=== PATIENT | male | born 1970 | race Caucasian/White ===

== ENCOUNTER 2018-02-04 23:36 | Inpatient (IN) | payer MEDICAID ==
[~2018-02-04] VITALS: Ht 182.9 cm; Wt 72.6 kg
[2018-02-04 23:44] VITALS: BP 112/71
--- NOTE | 2018-02-04 23:50 | Emergency Room Report ---
History of Present Illness General Chief Complaint: Abdominal Pain Source: Patient Present Illness HPI Is a 47-year-old male who is an alcoholic. He said he drinks heavily every day. He switched from vodka to wine. He presents with chief complaint abdominal distention and jaundice. He said it has been on going for several weeks but worse in the last week. No pain. There is heaviness and fullness to his abdomen. Diffuse tenderness. No nausea no vomiting. Denies any other medical problem. Denies any drug use. No trauma. No fever. Allergies: Coded Allergies: No Known Allergies (Unverified , 02/04/18) Patient History Past Medical History: none, see triage record, old chart reviewed Past Surgical History: none Pertinent Family History: none Social History: Reports: smoking, alcohol use Immunizations: other Reviewed Nursing Documentation: PMH: Agreed; PSxH: Agreed Nursing Documentation-PMH Past Medical History: No History, Except For Review of Systems Eye: Denies: eye pain, blurred vision ENT: Denies: ear pain, nose congestion, throat swelling Respiratory: Denies: cough, shortness of breath Cardiovascular: Denies: chest pain, palpitations Gastrointestinal: Denies: abdominal pain, diarrhea, nausea, vomiting Musculoskeletal: Denies: back pain, joint pain Skin: Denies: rash Neurological: Denies: headache, numbness Endocrine: Denies: increased thirst, increased urine Hematologic/Lymphatic: Denies: easy bruising All Other Systems: negative except mentioned in HPI Physical Exam Vital Signs Date Time Temp Pulse Resp B/P (MAP) Pulse Ox O2 Delivery O2 Flow Rate FiO2 02/04/18 23:28 96.4 85 16 112/71 96 Room Air 96.4 vitals normal Sp02 EP Interpretation: reviewed, normal General Appearance: no apparent distress, alert, thin, Chronically Ill Head: normocephalic, atraumatic Eyes: bilateral eye PERRL, bilateral eye EOMI, bilateral eye Scleral Injection ENT: hearing grossly normal, normal pharynx Neck: full range of motion, supple, no meningismus Respiratory: chest non-tender, lungs clear, normal breath sounds Cardiovascular #1: regular rate, rhythm, no murmur Gastrointestinal: normal bowel sounds, non tender, no mass, no organomegaly, no bruit, other - distention from ascites Musculoskeletal: back normal, gait/station normal, normal range of motion Neurologic: alert, oriented x3 Psychiatric: mood/affect normal Skin: warm/dry Procedures Critical Care Time Critical Care Time Critical care is mandated in this patient who presented with severe hyponatremia. Patient require my urgent intervention to attenuate the risks of neurological collapse which may lead to cardiovascular collapse and . Critical care time is 35 minutes excluding any reportable procedure. Critical care time included evaluation, multiple reevaluation, looking at old charts, interpreting laboratory and diagnostic data, discussing case with patient and family and consultants, and charting. Additional Procedure Procedure Narrative Procedure: Paracentesis Indication: Abdominal distention, ascites, rule out SBP. Description: Consent obtained from patient. I prepped the area with chlorhexidine and under sterile condition injected the skin with 1% lidocaine without epinephrine. A total of 3 mL injected. Using a paracentesis kit, I placed the catheter into the peritoneal cavity. I aspirated out yellowish ascites. There was no blood. So far, there is about 2 L of output. Patient tolerate procedure without a problem. no complication. He said he felt better. Medical Decision Making Diagnostic Impression: Primary Impression: Hepatorenal syndrome Additional Impressions: End stage liver disease ARF (acute renal failure) Qualified Codes: N17.9 - Acute kidney failure, unspecified Hyponatremia Anemia Qualified Codes: D64.9 - Anemia, unspecified Alcoholism Hypochloremia Leukocytosis Qualified Codes: D72.829 - Elevated white blood cell count, unspecified Alcoholic cirrhosis of liver with ascites Lactic acidosis ER Course This patient is an alcoholic who presents with severe jaundice and ascites. He has no obvious source of infection was high white count. Ascites is very yellow but not purulent in appearance. Cell counts pending. I cover him with Zosyn and Levaquin for possible peritonitis. His prognosis is very poor in light of hepatorenal failure. He felt more comfortable after paracentesis about a 5000 mL output. His bilirubin extremely high. This may be some obstructive process either from cirrhosis or neoplastic process. We'll admit for further workup. I discussed the case with Dr. Carlin who will admit. Laboratory Tests Test 02/04/18 23:40 02/05/18 00:35 02/05/18 00:40 02/05/18 01:00 White Blood Count 24.4 K/UL (4.8-10.8) *H Red Blood Count 3.24 M/UL (4.70-6.10) L Hemoglobin 11.7 G/DL (14.2-18.0) L Hematocrit 30.4 % (42.0-52.0) L Mean Corpuscular Volume 94 FL (80-99) Mean Corpuscular Hemoglobin 36.1 PG (27.0-31.0) H Mean Corpuscular Hemoglobin Concent 38.5 G/DL (32.0-36.0) H Red Cell Distribution Width 12.2 % (11.6-14.8) Platelet Count 117 K/UL (150-450) L Mean Platelet Volume 10.2 FL (6.5-10.1) H Neutrophils (%) (Auto) % (45.0-75.0) Lymphocytes (%) (Auto) % (20.0-45.0) Monocytes (%) (Auto) % (1.0-10.0) Eosinophils (%) (Auto) % (0.0-3.0) Basophils (%) (Auto) % (0.0-2.0) Neutrophils % (Manual) Pending Lymphocytes % (Manual) Pending Platelet Estimate Pending Platelet Morphology Pending Prothrombin Time 14.3 SEC (9.30-11.50) H Prothromb Time International Ratio 1.4 (0.9-1.1) H Activated Partial Thromboplast Time 49 SEC (23-33) H Sodium Level 106 MMOL/L (136-145) *L 106 MMOL/L (136-145) *L Potassium Level 4.6 MMOL/L (3.5-5.1) 4.9 MMOL/L (3.5-5.1) Chloride Level 67 MMOL/L (98-107) L 67 MMOL/L (98-107) L Carbon Dioxide Level 22 MMOL/L (21-32) 21 MMOL/L (21-32) Anion Gap 19 mmol/L (5-15) H 18 mmol/L (5-15) H Blood Urea Nitrogen 78 mg/dL (7-18) H 78 mg/dL (7-18) H Creatinine 8.5 MG/DL (0.55-1.30) H 8.6 MG/DL (0.55-1.30) H Estimat Glomerular Filtration Rate 6.7 mL/min (>60) 6.7 mL/min (>60) Glucose Level 99 MG/DL (74-106) 106 MG/DL (74-106) Calcium Level 7.7 MG/DL (8.5-10.1) L 7.5 MG/DL (8.5-10.1) L Total Bilirubin 28.7 MG/DL (0.2-1.0) H Direct Bilirubin 23.8 MG/DL (0.0-0.3) H Aspartate Amino Transf (AST/SGOT) 120 U/L (15-37) H Alanine Aminotransferase (ALT/SGPT) 60 U/L (12-78) Alkaline Phosphatase 255 U/L (46-116) H Total Protein 6.4 G/DL (6.4-8.2) Albumin 2.2 G/DL (3.4-5.0) L Globulin 4.2 g/dL Albumin/Globulin Ratio 0.5 (1.0-2.7) L Lipase 378 U/L (73-393) Lactic Acid Level 4.80 mmol/L (0.66-2.22) H Body Fluid Source Pending Body Fluid Volume Pending Body Fluid Appearance Pending Body Fluid RBC Pending Body Fluid Total Nucleated Cells Pending Body Fluid Polynuclear WBCs (%) Pending Body Fluid Mononuclear WBCs (%) Pending Body Fluid Mesothelial Cells (%) Pending Body Fluid Glucose Pending Body Fluid Total Protein Pending Test 02/05/18 02:20 Lactic Acid Level Pending Lab Results Impression labs with elevated wbc, ARF and elevated bilirubin EKG Diagnostic Results Rate: normal Rhythm: NSR ST Segments: no acute changes Rhythm Strip Diag. Results Rhythm Strip Time: 01:32 EP Interpretation: yes Rate: 86 Rhythm: NSR, no PVC's, no ectopy Chest X-Ray Diagnostic Results Chest X-Ray Diagnostic Results : Chest X-Ray Ordered: Yes # of Views/Limited/Complete: 1 View Indication: Shortness of Breath EP Interpretation: Yes Interpretation: no consolidation, no effusion, no pneumothorax, no acute cardiopulmonary disease Impression: No acute disease Electronically Signed by: Mu Culver MD Last Vital Signs Date Time Temp Pulse Resp B/P (MAP) Pulse Ox O2 Delivery O2 Flow Rate FiO2 02/04/18 23:44 96.4 85 16 112/71 96 Room Air 96.4 Status: improved Disposition: ADMITTED INPATIENT Condition: Serious MU CULVER M.D. Feb 04, 2018 23:50
[2018-02-05] VITALS (7 sets, daily range): BP systolic 90–101; BP diastolic 48–73
[2018-02-05] MEDS ORDERED: chlordiazePOXIDE 25mg Cap ORAL ONE
[2018-02-05 00:08] LABS: HEMATOCRIT 30.4 % (42.0-52.0); HEMOGLOBIN 11.7 G/DL (14.2-18.0); MEAN CORPUSCULAR VOLUME 94 FL (80-99); PLATELET COUNT 117 K/UL (150-450); RED BLOOD COUNT 3.24 M/UL (4.70-6.10); RED CELL DISTRIBUTION WIDTH 12.2 % (11.6-14.8)
[2018-02-05 00:14] LABS: WHITE BLOOD COUNT 24.4 K/UL (4.8-10.8)
[2018-02-05 00:41] LABS: ALANINE AMINOTRANSFERASE 60 U/L (12-78); ALBUMIN 2.2 G/DL (3.4-5.0); ALBUMIN/GLOBULIN RATIO 0.5 (1.0-2.7); ALKALINE PHOSPHATASE 255 U/L (46-116); ANION GAP 19 mmol/L (5-15); ASPARTATE AMINO TRANSFERASE 120 U/L (15-37); BILIRUBIN,TOTAL 28.7 MG/DL (0.2-1.0); BLOOD UREA NITROGEN 78 mg/dL (7-18); CALCIUM 7.7 MG/DL (8.5-10.1); CARBON DIOXIDE 22 MMOL/L (21-32); CHLORIDE 67 MMOL/L (98-107); CREATININE 8.5 MG/DL (0.55-1.30); POTASSIUM 4.6 MMOL/L (3.5-5.1)
[2018-02-05 00:44] LABS: SODIUM 106 MMOL/L (136-145)
[2018-02-05 00:47] LABS: INR 1.4 (0.9-1.1)
[2018-02-05 00:49] LABS: BILIRUBIN,DIRECT 23.8 MG/DL (0.0-0.3)
[2018-02-05 01:31] LABS: ANION GAP 18 mmol/L (5-15); BLOOD UREA NITROGEN 78 mg/dL (7-18); CALCIUM 7.5 MG/DL (8.5-10.1); CARBON DIOXIDE 21 MMOL/L (21-32); CHLORIDE 67 MMOL/L (98-107); CREATININE 8.6 MG/DL (0.55-1.30); POTASSIUM 4.9 MMOL/L (3.5-5.1)
[2018-02-05 01:39] LABS: SODIUM 106 MMOL/L (136-145)
[2018-02-05] MEDS ORDERED: NaCl 3% 500ml 500 ML IVPB ONE (01:45)
[2018-02-05] MEDS ORDERED: Piperacillin/Tazobactam 3.375 GM in NS 110 ML IVPB ONE (01:45)
[2018-02-05] MEDS ORDERED: NKM (03:43)
[2018-02-05 04:34] LABS: COLOR,URINE GREEN
[2018-02-05 04:35] LABS: APPEARANCE,URINE SLIGHTLY CLOUDY; BILIRUBIN, URINE 3+ (NEGATIVE); GLUCOSE, URINE (UA) 1+ (NEGATIVE); KETONES,URINE NEGATIVE (NEGATIVE); LEUKOCYTE ESTERASE ,URINE 1+ (NEGATIVE); NITRITE,URINE POSITIVE (NEGATIVE); PH,URINE 5 (4.5-8.0); PROTEIN,URINE 3+ (NEGATIVE); UROBILINOGEN,URINE 4 MG/DL (0.0-1.0)
[2018-02-05] MEDS: Heparin 5000 units/ml inj SUBQ SCH ×2 (09:00→21:00)
[2018-02-05] MEDS: chlordiazePOXIDE 5mg Cap ORAL SCH ×2 (09:04→18:06)
--- NOTE | 2018-02-05 09:27 | Diagnostic Imaging Report ---
Indication: Soreness of breath Technique: XRAY Chest 1v Comparison: None Findings: Limited exam with low lung volumes. Heart size within normal limits. Mediastinal contours are sharp. The aorta is slightly tortuous. There is slight prominence of the pulmonary vascularity, likely related to low lung volumes. There is linear opacity in the medial right lower lung possibly related to subsegmental atelectasis. No pleural effusion or pneumothorax. No acute osseous abnormality. IMPRESSION: Slight prominence of the pulmonary vascularity likely secondary to low lung volumes. A degree of mild interstitial edema/fluid overload is not entirely excluded. Linear opacity in the medial right lower lung thought to represent subsegmental atelectasis. Clinical correlation and follow-up exam recommended. Study obtained via the emergency department however patient admitted to the hospital at time of dictation of the final report.
--- NOTE | 2018-02-05 10:32 | History and Physical Report ---
DATE OF ADMISSION: 02/05/2018 CHIEF COMPLAINT: Abdominal pain. HISTORY OF PRESENT ILLNESS: This is a 47-year-old male with an unfortunate end-stage liver disease and ascites. The patient presented with abdominal distention and jaundice. PAST MEDICAL HISTORY: End-stage liver disease due to alcohol. MEDICATIONS: No known medications. ALLERGIES: No known drug allergies. FAMILY HISTORY: Unremarkable. SOCIAL HISTORY: The patient drinks on a daily basis heavily for many years. There is no history of illicit drug abuse. REVIEW OF SYSTEMS: HEENT: Hearing and eyesight are normal. ENDOCRINE: No history of diabetes, thyroid or adrenal problems. RESPIRATORY: He denies shortness of breath, cough or hemoptysis. CARDIOVASCULAR: He denies chest pain or palpitations. GASTROINTESTINAL: Significant for chronic liver disease. NEUROLOGICAL: No history of stroke, syncope or Parkinson's disease. PHYSICAL EXAMINATION: GENERAL: This is a middle aged, chronically ill-appearing, male, who is in no acute distress. VITAL SIGNS: Blood pressure 97/61, pulse 93, respirations 23, and temperature 97 degrees. HEENT: Head is normocephalic and atraumatic. Pupils are equal, round, and reactive to light and accommodation consensually. NECK: Supple. Trachea midline. There was no lymphadenopathy or thyromegaly. LUNGS: Clear to auscultation and percussion. HEART: Regular rate and rhythm without rubs, murmurs, or gallops. ABDOMEN: He has tense ascites. There was no impression of hepatomegaly, difficult to getting pressure of splenomegaly. NEUROLOGIC: The patient is little sleepy, but arousable. LABORATORY AND ANCILLARY DATA: [place] [address], hematocrit 30.4, and platelet count 117,000. Serum chemistry, sodium 106, potassium 4.9, chloride 67, BUN 78, and creatinine 8.6. Lactic acid 2.9. Urine toxicology screen negative. ASSESSMENT: 1. End-stage liver failure. 2. Hepatorenal syndrome. 3. Chronic hyponatremia. Assessment showed the patient's prognosis is extremely poor given the combination of the 2 major organ failure. At this point, I will discuss the treatment goals and meetings with the patient and possibly with significant other. We will try to get social worker palliative care to find family members and relatives. The patient does not qualify for initiation of hemodialysis since his prognosis is extremely poor. Tirso Eaton M.D. DR: BINH JOB#: [id number] CC:
[2018-02-05] MEDS: Acetaminophen 500mg (ES) tab ORAL PRN ×2 (13:55→19:39)
[2018-02-05] MEDS ORDERED: Zolpidem 5mg tab ORAL PRN (20:45)
[2018-02-06] VITALS: BP 90/57
[2018-02-06 04:00] VITALS: BP 89/52
[2018-02-06 08:00] VITALS: BP 96/46
[2018-02-06] MEDS: chlordiazePOXIDE 5mg Cap ORAL SCH ×2 (08:24→17:21)
[2018-02-06] MEDS: Heparin 5000 units/ml inj SUBQ SCH ×2 (08:37→21:00)
--- NOTE | 2018-02-06 09:11 | General Progress Note ---
Assessment/Plan Assessment/Plan Hepatorenal Syn. ESLD Poor Prognosis. Needs Hospice. Subjective Allergies: Coded Allergies: No Known Allergies (Unverified , 02/04/18) Subjective c/o diffuse pain. Wants narcotics. Objective Last 24 Hour Vital Signs Date Time Temp Pulse Resp B/P (MAP) Pulse Ox O2 Delivery O2 Flow Rate FiO2 02/06/18 04:00 82 02/06/18 04:00 97.4 85 18 89/52 100 Room Air 97.4 02/06/18 00:00 89 02/06/18 00:00 97.5 87 18 90/57 100 Room Air 97.5 02/05/18 20:00 85 02/05/18 20:00 97.1 87 18 91/57 100 Room Air 97.1 02/05/18 16:00 88 02/05/18 16:00 97.0 87 20 92/56 100 Room Air 97.0 02/05/18 12:00 97.2 87 18 90/48 98 Room Air 97.2 02/05/18 12:00 89 Laboratory Tests 02/05/18 10:05: Magnesium Level 2.0, Ammonia 16 Height (Feet): 6 Height (Inches): 0.00 Weight (Pounds): 160 Objective Icteric. CV RR Lungs CTA Abd Ascites E No CCE Tirso Eaton MD February 06, 2018 09:11
[2018-02-06 12:00] VITALS: BP 78/44
--- NOTE | 2018-02-06 15:11 | Diagnostic Imaging Report ---
Indication: Abdominal distention and pain. Elevated liver function tests. Elevated lipase Technique: Grayscale and duplex Doppler imaging of the abdomen performed. Comparison: None Findings: There is liver surface micro-nodularity demonstrated. Moderate ascites noted. Gallbladder wall is moderately thick. Pulsatile portal venous waveform noted on duplex interrogation. No gallbladder stones are identified but there is layering sludge present. No biliary ductal dilatation is identified. The CBD is 5 mm in diameter. Kidneys are unremarkable. There is no hydronephrosis. The spleen measures 15 cm. The abdominal aorta and portion of the pancreas not well seen. IMPRESSION: Chronic liver disease/cirrhosis with stigmata of portal hypertension including ascites and splenomegaly. Gallbladder sludge Aorta not seen
[2018-02-06 16:00] VITALS: BP 82/50
[2018-02-06 20:00] VITALS: BP 84/51
[2018-02-07] VITALS: BP 90/49
[2018-02-07 04:00] VITALS: BP 82/47
--- NOTE | 2018-02-07 07:23 | General Progress Note ---
Assessment/Plan Assessment/Plan Hepatorenal Syn. ESLD Poor Prognosis. Needs Hospice DW patient @ length. He prefers to in the hospital.. Subjective Allergies: Coded Allergies: No Known Allergies (Unverified , 02/04/18) Subjective c/o diffuse pain. Wants narcotics. Objective Last 24 Hour Vital Signs Date Time Temp Pulse Resp B/P (MAP) Pulse Ox O2 Delivery O2 Flow Rate FiO2 02/07/18 04:00 97.7 81 20 82/47 96 Room Air 97.7 02/07/18 03:41 81 02/07/18 00:00 97.3 86 20 90/49 92 Room Air 97.3 02/06/18 23:50 80 02/06/18 20:00 97.4 86 20 84/51 99 Room Air 97.4 02/06/18 19:49 82 02/06/18 16:00 97.2 80 20 82/50 96 Room Air 97.2 02/06/18 16:00 85 02/06/18 12:00 74 02/06/18 12:00 97.0 80 20 78/44 95 Room Air 97.0 02/06/18 08:00 97.3 82 20 96/46 95 Room Air 97.3 02/06/18 08:00 80 Intake and Output 02/06/18 02/07/18 19:00 07:00 Intake Total 120 ml 0 ml Output Total 1500 ml Balance 120 ml -1500 ml Intake Oral 120 ml 0 ml Output Other 1500 ml Height (Feet): 6 Height (Inches): 0.00 Weight (Pounds): 160 Objective Icteric. CV RR Lungs CTA Abd Ascites E No CCE Tirso Eaton MD February 07, 2018 07:23
[2018-02-07] MEDS ORDERED: HYDROmorphone 2mg tab ORAL PRN ×2 (07:30)
[2018-02-07 08:00] VITALS: BP 83/46
[2018-02-07 08:33] LABS: ANION GAP 19 mmol/L (5-15); BLOOD UREA NITROGEN 116 mg/dL (7-18); CARBON DIOXIDE 18 MMOL/L (21-32); CHLORIDE 76 MMOL/L (98-107); CREATININE 10.8 MG/DL (0.55-1.30); POTASSIUM 5.2 MMOL/L (3.5-5.1)
[2018-02-07 08:34] LABS: SODIUM 113 MMOL/L (136-145)
[2018-02-07] MEDS: Heparin 5000 units/ml inj SUBQ SCH ×2 (09:00→20:24)
[2018-02-07 09:10] LABS: HEMATOCRIT 23.6 % (42.0-52.0); HEMOGLOBIN 8.8 G/DL (14.2-18.0); MEAN CORPUSCULAR VOLUME 95 FL (80-99); RED CELL DISTRIBUTION WIDTH 12.7 % (11.6-14.8); WHITE BLOOD COUNT 16.2 K/UL (4.8-10.8)
[2018-02-07 09:12] LABS: PLATELET COUNT 62 K/UL (150-450)
[2018-02-07] MEDS: chlordiazePOXIDE 5mg Cap ORAL SCH ×2 (09:39→17:54)
[2018-02-07 12:00] VITALS: BP 100/73
[2018-02-07 16:00] VITALS: BP 100/50
[2018-02-07 20:00] VITALS: BP 76/44
[2018-02-08] VITALS: BP 82/50
[2018-02-08 04:00] VITALS: BP 82/44
[2018-02-08 08:00] VITALS: BP 76/43
[2018-02-08] MEDS: chlordiazePOXIDE 5mg Cap ORAL SCH (08:44)
[2018-02-08] MEDS: Heparin 5000 units/ml inj SUBQ SCH (08:46)
--- NOTE | 2018-02-08 10:18 | General Progress Note ---
Assessment/Plan Assessment/Plan Hepatorenal Syn. ESLD Poor Prognosis. Needs Hospice DW patient @ length. DW Pt, his mother and SW. All agree for Hospice. Options are home with Hospice vs. SNF with Hospice (less likely 2nd to his insurance). Awaiting inputs.. Subjective Allergies: Coded Allergies: No Known Allergies (Unverified , 02/04/18) Subjective No new c/o. Objective Last 24 Hour Vital Signs Date Time Temp Pulse Resp B/P (MAP) Pulse Ox O2 Delivery O2 Flow Rate FiO2 02/08/18 08:00 97.1 76 18 76/43 97 Room Air 97.1 02/08/18 04:00 96.0 77 18 82/44 100 Room Air 96.0 02/08/18 04:00 80 02/08/18 00:00 96.0 80 20 82/50 99 Room Air 96.0 02/08/18 00:00 75 02/07/18 20:00 96.0 75 16 76/44 98 Room Air 96.0 02/07/18 20:00 78 02/07/18 16:00 82 02/07/18 16:00 98.0 79 19 100/50 95 Room Air 98.0 02/07/18 12:00 80 02/07/18 12:00 97.1 77 20 100/73 99 Room Air 97.1 Intake and Output 02/07/18 02/08/18 19:00 07:00 # Voids 2 Height (Feet): 6 Height (Inches): 0.00 Weight (Pounds): 160 Objective Icteric. CV RR Lungs CTA Abd Ascites E No CCE Tirso Eaton MD February 08, 2018 10:18
[2018-02-08] MEDS ORDERED: LORazepam 1mg tab ORAL PRN ×2 (10:30→22:30)
[2018-02-08 12:00] VITALS: BP 78/49
[2018-02-08 16:00] VITALS: BP 79/50
[2018-02-08 20:00] VITALS: BP 80/38
[2018-02-08] MEDS ORDERED: HYDROmorphone 2mg tab ORAL PRN (23:30)
[2018-02-09] VITALS: BP 80/38
[2018-02-09] MEDS ORDERED: Acetaminophen 500mg (ES) tab ORAL PRN (00:45)
[2018-02-09 04:00] VITALS: BP 73/36
[2018-02-09 07:01] LABS: ANION GAP 21 mmol/L (5-15); BLOOD UREA NITROGEN 135 mg/dL (7-18); CALCIUM 7.1 MG/DL (8.5-10.1); CARBON DIOXIDE 16 MMOL/L (21-32); CHLORIDE 75 MMOL/L (98-107); CREATININE 12.8 MG/DL (0.55-1.30)
[2018-02-09 07:10] LABS: HEMATOCRIT 20.9 % (42.0-52.0); HEMOGLOBIN 7.7 G/DL (14.2-18.0); MEAN CORPUSCULAR VOLUME 94 FL (80-99); RED BLOOD COUNT 2.21 M/UL (4.70-6.10); RED CELL DISTRIBUTION WIDTH 13.5 % (11.6-14.8); WHITE BLOOD COUNT 19.2 K/UL (4.8-10.8)
[2018-02-09 07:40] LABS: POTASSIUM 6.3 MMOL/L (3.5-5.1); SODIUM 114 MMOL/L (136-145)
[2018-02-09 08:18] LABS: PLATELET COUNT 35 K/UL (150-450)
[2018-02-09 08:39] VITALS: BP 75/37
[2018-02-09] MEDS ORDERED: Sodium Polystyrene Sulfonate 15gm Powder ORAL ONE (08:50)
[2018-02-09 11:54] VITALS: BP 66/38
--- NOTE | 2018-02-09 12:46 | General Progress Note ---
Assessment/Plan Assessment/Plan Hepatorenal Syn. ESLD Poor Prognosis. Needs Hospice DW patient @ length. DW Pt, his mother and SW. All agree for Hospice. Options are home with Hospice vs. SNF with Hospice (less likely 2nd to his insurance). Awaiting inputs.. Subjective Allergies: Coded Allergies: No Known Allergies (Unverified , 02/04/18) Subjective No new c/o. Was hypotensive earlier. Jose normal BP. Objective Last 24 Hour Vital Signs Date Time Temp Pulse Resp B/P (MAP) Pulse Ox O2 Delivery O2 Flow Rate FiO2 02/09/18 11:54 98.0 68 20 66/38 95 98.0 02/09/18 08:39 98.2 69 20 75/37 95 98.2 02/09/18 04:00 97.5 63 16 73/36 96 97.5 02/09/18 00:00 97.5 67 18 80/38 95 97.5 02/08/18 16:00 98.7 74 22 79/50 96 Room Air 98.7 Intake and Output 02/08/18 02/09/18 19:00 07:00 Intake Total 220 ml Output Total 600 ml Balance -380 ml Intake Oral 220 ml Output Urine Total 600 ml Laboratory Tests 02/09/18 05:15: White Blood Count 19.2H, Red Blood Count 2.21L, Hemoglobin 7.7L, Hematocrit 20.9L, Mean Corpuscular Volume 94, Mean Corpuscular Hemoglobin 35.0H, Mean Corpuscular Hemoglobin Concent 37.2H, Red Cell Distribution Width 13.5, Platelet Count 35L, Mean Platelet Volume 13.9H, Neutrophils (%) (Auto) , Lymphocytes (%) (Auto) , Monocytes (%) (Auto) , Eosinophils (%) (Auto) , Basophils (%) (Auto) , Differential Total Cells Counted 100, Neutrophils % ( Manual) 96H, Lymphocytes % (Manual) 2L, Monocytes % (Manual) 2, Eosinophils % ( Manual) 0, Basophils % (Manual) 0, Band Neutrophils 0, Platelet Estimate DecreasedL, Platelet Morphology , Giant Platelets Occasional, Hypochromasia 1+, Sodium Level 114*L, Potassium Level 6.3*H, Chloride Level 75L, Carbon Dioxide Level 16L, Anion Gap 21H, Blood Urea Nitrogen 135H, Creatinine 12.8H, Estimat Glomerular Filtration Rate 4.2, Glucose Level 90, Calcium Level 7.1L Height (Feet): 6 Height (Inches): 0.00 Weight (Pounds): 160 Objective Icteric. CV RR Lungs CTA Abd Ascites E No CCE Tirso Eaton MD February 09, 2018 12:46
[2018-02-09 15:52] VITALS: BP 69/36
[2018-02-09] MEDS ORDERED: NS Irrig 1000ml ONE (16:42)
[2018-02-09 20:00] VITALS: BP 69/37
[2018-02-09] MEDS ORDERED: Zolpidem 5mg tab ORAL PRN (20:45)
[2018-02-10] VITALS: BP 75/33
[2018-02-10 04:00] VITALS: BP 69/37
[2018-02-10 08:04] VITALS: BP 65/39
--- NOTE | 2018-02-10 11:20 | General Progress Note ---
Assessment/Plan Assessment/Plan Hepatorenal Syn. ESLD Poor Prognosis. Needs Hospice DW patient @ length. DW Pt, his mother and SW. All agree for Hospice. Options are home with Hospice vs. SNF with Hospice (less likely 2nd to his insurance). Awaiting inputs.. Subjective Allergies: Coded Allergies: No Known Allergies (Unverified , 02/04/18) Subjective No new c/o. Was hypotensive earlier. Jose normal BP. Objective Last 24 Hour Vital Signs Date Time Temp Pulse Resp B/P (MAP) Pulse Ox O2 Delivery O2 Flow Rate FiO2 02/10/18 08:04 97.4 65 18 65/39 96 97.4 02/10/18 04:00 95.9 65 20 69/37 98 Room Air 95.9 02/10/18 00:00 95.4 68 19 75/33 98 Room Air 95.4 02/09/18 20:00 95.4 73 17 69/37 95 Room Air 95.4 02/09/18 20:00 95 Room Air 02/09/18 15:52 98.2 74 20 69/36 97 98.2 02/09/18 11:54 98.0 68 20 66/38 95 98.0 Intake and Output 02/09/18 02/10/18 19:00 07:00 Intake Total 480 ml Balance 480 ml Intake Oral 480 ml # Voids 1 Height (Feet): 6 Height (Inches): 0.00 Weight (Pounds): 160 Objective Icteric. CV RR Lungs CTA Abd Ascites E No CCE Tirso Eaton MD February 10, 2018 11:20
[2018-02-10 11:48] VITALS: BP 68/38
[2018-02-10 16:03] VITALS: BP 69/36
[2018-02-10 19:29] VITALS: BP 61/34
[2018-02-11 00:29] VITALS: BP 58/31
[2018-02-11 04:13] VITALS: BP 59/46
[2018-02-11 08:00] VITALS: BP 63/34
--- NOTE | 2018-02-11 11:39 | General Progress Note ---
Assessment/Plan Assessment/Plan Hepatorenal Syn. ESLD Poor Prognosis. Needs Hospice DW Pt, his mother and SW. All agree for Hospice. Options are home with Hospice vs. SNF with Hospice (less likely 2nd to his insurance). Awaiting inputs.. Subjective Allergies: Coded Allergies: No Known Allergies (Unverified , 02/04/18) Subjective No new c/o. Was hypotensive earlier. Jose normal BP. Objective Last 24 Hour Vital Signs Date Time Temp Pulse Resp B/P (MAP) Pulse Ox O2 Delivery O2 Flow Rate FiO2 02/11/18 08:00 96.5 65 18 63/34 95 Room Air 96.5 02/11/18 04:13 96.9 68 20 59/46 91 Room Air 96.9 02/11/18 00:29 98.7 52 20 58/31 96 Room Air 98.7 02/10/18 19:29 97.5 60 20 61/34 95 Room Air 97.5 02/10/18 16:03 97.2 67 18 69/36 96 97.2 02/10/18 11:48 98.0 68 18 68/38 95 98.0 Intake and Output 02/10/18 02/11/18 19:00 07:00 # Voids 3 Height (Feet): 6 Height (Inches): 0.00 Weight (Pounds): 160 Objective Icteric. CV RR Lungs CTA Abd Ascites E No CCE Tirso Eaton MD February 11, 2018 11:39
[2018-02-11 16:00] VITALS: BP 61/34
[2018-02-11 23:47] VITALS: BP 60/32
[2018-02-12 04:00] VITALS: BP 44/23
--- NOTE | 2018-02-13 15:02 | Discharge Summary ---
Discharge Summary Discharge Summary Discharge Summary SUMMARY DATE OF ADMISSION: 02/05/2018 DATE OF EXPIRATION: Feb 12 2018 REASON FOR ADMISSION: 47 years old male with a history of alcohol abuse, presented to emergency department with a chief complaint of abdominal distention and jaundice. Patient reported drinking heavily on a daily basis. Patient recently switched from vodka to wine. Patient reported that symptoms were ongoing for several weeks, but got worse in the last week. He denied pain, but reported heaviness and fullness in his abdomen along with diffuse tenderness. No nausea,no vomiting. No history of drug abuse. Urine toxicology screen was negative. WBC 24.4. Platelets 117. INR 1.4. Sodium 106. BUN 78 creatinine 8.5. Lactic acid 4.8 .Hemoglobin 11.7, hematocrit 30.4. Albumin 2.2 , total bilirubin 28.7 ,direct bilirubin 23.8. AST 120. Abdominal ultrasound revealed chronic liver disease/cirrhosis with stigmata of portal hypertension , including ascites and splenomegaly. Gallbladder sludge. Chest x-ray revealed slight prominence of the pulmonary vasculature likely secondary to low lung volumes. Mild interstitial edema/ fluid overload was not entirely excluded. Linear opacity in the medial right lower lung likely representing subsegmental atelectasis. Patient undergone paracentesis in emergency department which yielded 2 L of ascitic fluid. Patient was admitted with diagnosis of end-stage liver disease, hepatorenal syndrome, acute renal failure, hyponatremia, alcoholic cirrhosis, anemia, alcohol abuse, lactic acidosis, leukocytosis HOSPITAL COURSE: Patient was admitted. Patient had extremely poor prognosis given failure of 2 major organ systems ( liver and renal). Patient was not a candidate for hemodialysis due to the extremely poor prognosis as per employee benefits administrator. Blood culture, urine culture, and peritoneal fluid culture were all negative. Analysis of peritoneal fluid ruled out spontaneous bacterial peritonitis. Patient was on empiric antibiotic. Leukocytosis with small trend down, but persisted; patient was afebrile. Leukocytosis was likely reactive. Librium provided as needed for alcohol withdrawal symptoms. Renal parameters and electrolytes were closely monitored. Electrolytes were corrected as needed. Nephrotoxics were avoided. Pain management was addressed. Pain was controlled. DVT prophylaxis provided. Symptomatic treatment provided. [place] of patient condition was discussed with patient and his monitor. Patient agreed to hospice care. Code status was changed to DNR/DNI. Supportive care provided with symptomatic treatment. Patient rapidly deteriorated. Acute renal failure worsened : on 02/09/18 BUN 135 and creatinine 12.8. Platelets count down to 35. HH down to 7.7/20.9 Discharge plan was in progress to arrange disposition home with hospice services. 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 Patient was pronounced at 0350 am . Cause of : cardiopulmonary arrest. FINAL DIAGNOSIS End-stage liver disease Hepatorenal syndrome Acute renal failure Chronic hyponatremia Alcoholic cirrhosis Anemia Leukocytosis Lactic acidosis I have been assigned to dictate discharge summary for this account. I was not involved in the patient's management. Samra Berg NP ([place]) February 13, 2018 15:02
== END 2018-02-12 03:50 | disposition expired | DRG 280 ==
LOC: EDBD 23:36 → EMR 23:40 → 2E 02-05 00:12 → EDBEDREQSVC 02-05 00:51 → EDBEDREQ 02-05 01:05 → 2E 02-05 04:29 → 4W 02-08 22:14
PROC: 0W9G3ZZ Drainage of Peritoneal Cavity, Percutaneous Approach (ICD-10-PCS; principal; 2018-02-05)
DX: K70.31 Alcoholic cirrhosis of liver with ascites (principal); K76.7 Hepatorenal syndrome; N17.9 Acute kidney failure, unspecified; K72.90 Hepatic failure, unspecified without coma; E87.1 Hypo-osmolality and hyponatremia; D64.9 Anemia, unspecified; E87.2 Acidosis; F10.20 Alcohol dependence, uncomplicated; Z66 Do not resuscitate
CPT/HCPCS: 36415; 71045; 76700; 80048; 80053; 80307; 81003; 82140; 82248; 82962; 83605; 83690; 83735; 85007; 85025; 85610; 85730; 87040; 87070; 87086; 87205; 89051; 93005; 99285; 99291